=== PATIENT | male | born 1965 | race Caucasian/White ===

== ENCOUNTER 2017-05-07 14:37 | Emergency (ER) | payer OTHER ==
[~2017-05-07] VITALS: Ht 175.3 cm; Wt 74.4 kg
[~2017-05-07 14:37] MED LIST: CIPRO500 MG PO; COLACE100 MG PO; FLAGYL500 MG PO; LORTAB 5-325 M1 EACH PO; MOTRIN400 MG PO; PERCOCET 5/31 TABLET PO; PRILOSEC OTC20 MG PO
[2017-05-07 15:08] LABS: HEMATOCRIT 35.7 % (38.0-50.0); HEMOGLOBIN 12.8 G/DL (12.5-16.6); MCH 32.4 PG (29.0-34.0); MCHC 35.9 G/DL (30.0-36.0); MCV 90.4 FL (86-99); PLATELET COUNT 192 K/uL (156-360); RBC DIS.WIDTH-CV 11.9 % (11.8-14.6); RBC DIS.WIDTH-SD 39.6 % (39-53); RED BLOOD COUNT 3.95 M/uL (4.00-5.50); WHITE BLOOD COUNT 6.8 K/uL (4.1-10.2)
[2017-05-07 15:16] LABS: ALBUMIN 4.1 g/dL (3.2-4.8); CHLORIDE 106 mEq/L (99-109); POTASSIUM 3.4 mEq/L (3.7-5.4); SODIUM 142 mEq/L (136-147)
[2017-05-07 15:18] LABS: GLUCOSE 90 mg/dL (70-99); TOTAL PROTEIN 6.8 g/dL (6.4-8.3)
[2017-05-07 15:20] LABS: TOTAL BILIRUBIN 0.5 mg/dL (0.0-1.0)
[2017-05-07 15:22] LABS: ALKALINE PHOSPHATASE 78 IU/L (3-129); CREATININE 0.8 mg/dL (0.6-1.3); GFR ESTIMATE (CALCULATED) > 59 mL/min/ (58.99-99999)
[2017-05-07 15:23] LABS: UREA NITROGEN (BUN) 16 mg/dL (9-23)
[2017-05-07 15:24] LABS: AST (GOT) 16 IU/L (2-34)
[2017-05-07 15:25] LABS: ALT (GPT) 14 IU/L (3-49); LIPASE 14 U/L (1.0-51.0)
[2017-05-07 18:10] LABS: APPEARANCE CLEAR ((CLEAR)); BILIRUBIN NEGATIVE; BLOOD NEGATIVE; COLOR YELLOW ((YELLOW)); GLUCOSE (STRIP) NEGATIVE; KETONES NEGATIVE; LEUKOCYTES NEGATIVE; NITRITE NEGATIVE; PROTEIN (STRIP) NEGATIVE; UCUL ADDED? NO; UROBILINOGEN 0.2 MG/DL (0.2-1.0)
[2017-05-07 18:11] LABS: SPECIFIC GRAVITY > 1.060 (1.000-1.030)
[2017-05-07] MEDS ORDERED: CITRATE OF MAG296 ML PO (18:18)
[2017-05-07] MEDS ORDERED: BENTYL20 MG PO (18:18)
[2017-05-07 18:31] VITALS: BP 133/84
== END 2017-05-07 18:36 | disposition home or self-care (01) ==
LOC: EME 14:37
DX: R10.30 Lower abdominal pain, unspecified (principal); K76.0 Fatty (change of) liver, not elsewhere classified; K57.30 Diverticulosis of large intestine without perforation or abscess without bleeding; N20.0 Calculus of kidney; F17.200 Nicotine dependence, unspecified, uncomplicated
CPT/HCPCS: 74177; 80053; 81003; 83690; 85027; 99281; 99284; J1885; J2405; J3010; J7030